=== PATIENT | male | born 1960 | race Caucasian/White ===

== ENCOUNTER 2018-12-13 03:31 | Emergency (ER) | payer MEDICARE, OTHER ==
[~2018-12-13] VITALS: Ht 157.5 cm; Wt 69.0 kg
[~2018-12-13 03:31] MED LIST: ASPI-817 PO; ATOR10TA65 PO; CHOL500010 PO; CLON0.5T4 PO; INSU100I12 SQ; LANT3I SC; LEVE100018 PO; METF100010 PO; NITR0.4T32 SL; RANO500T2 PO
[2018-12-13 03:41] VITALS: Ht 157.5 cm; Wt 69.0 kg
[2018-12-13 05:58] VITALS: BP 130/85
[2018-12-13] MEDS ORDERED: KETOROLAC 30 MG INJ IM STA (06:00)
[2018-12-13] MEDS ORDERED: PHENYTOIN 1,000 MG in SOD CHLORIDE 0.9% 100 ML IV ONE (06:30)
[2018-12-13 07:45] VITALS: PULSE 142; RESP 24
== END 2018-12-13 09:15 | disposition home or self-care (01) ==
LOC: MERGE 03:31 → E/R 03:31
DX: D64.9 Anemia, unspecified (principal); R89.2 Abnormal level of other drugs, medicaments and biological substances in specimens from other organs, systems and tissues; I10 Essential (primary) hypertension; E11.9 Type 2 diabetes mellitus without complications; Z79.4 Long term (current) use of insulin; Z79.82 Long term (current) use of aspirin
CPT/HCPCS: 36415; 71045; 80048; 80185; 81003; 82962; 83880; 84484; 85025; 93005; 96365; 96372; 99285; J1165; J1885